=== PATIENT | male | born 1940 | race Asian ===

== ENCOUNTER 2020-05-05 11:37 | Outpatient (REF) | payer OTHER, SELFPAY ==
[2020-05-07 09:53] LABS: SARS COV2 IgG Negative (Negative)
== END 2020-05-05 11:38 | disposition home or self-care (01) ==
LOC: HO.LAB 11:37
PROVIDERS: PCP Internal Medicine; Visit Provider Internal Medicine
DX: Z20.822 Contact with and (suspected) exposure to COVID-19 (principal)
CPT/HCPCS: 36415; 86769

== ENCOUNTER 2020-05-05 12:28 | Outpatient (REF) | payer OTHER, SELFPAY | END 2020-05-05 12:29 | disposition home or self-care (01) | LOC: HO.LAB 12:28 | PROVIDERS: Visit Provider Internal Medicine | DX: Z20.822 Contact with and (suspected) exposure to COVID-19 (principal) | CPT/HCPCS: 36415; C9803; U0003 ==